=== PATIENT | male | born 1940 | race Two or more races ===

== ENCOUNTER 2025-06-19 03:43 | Emergency (ER) | payer OTHER ==
[~2025-06-19] VITALS: Ht 190.5 cm; Wt 117.9 kg
[2025-06-19] MEDS ORDERED: MORPHINE SULFATE INJ 4 MG/ML DISP.SYRIN ONE (04:30)
[2025-06-19] MEDS: MORPHINE SULFATE INJ 2 MG/ML DISP.SYRIN IV ONE (04:32)
[2025-06-19 04:35] LABS: PLATELET COUNT (AUTO) 159 K/uL (150-450); RED BLOOD CELL COUNT(AUTO) 4.18 MIL/uL (4.5-6.0); RED CELL DISTRIBUTION WIDTH 14.1 % (11.5-15.0); WHITE BLOOD COUNT (AUTO) 7.9 K/uL (4.3-11.0)
[2025-06-19 04:42] LABS: CALCIUM, SERUM 9.1 mg/dL (8.5-10.1); CREATININE 1.3 mg/dL (0.6-1.3); SODIUM SERUM 135.0 mmol/L (136-145); UREA NITROGEN, BLOOD 17.0 mg/dL (7-18)
[2025-06-19 04:44] LABS: ERYTHROCYTE SEDIMENTATION RATE 34 MM/HR (0-20)
[2025-06-19 07:21] VITALS: TEMP 98.7
[2025-06-19 08:05] VITALS: BP 131/66; O2SAT 98
== END 2025-06-19 07:55 | disposition short-term general hospital (02) ==
LOC: ER 03:48
DX: M19.90 Unspecified osteoarthritis, unspecified site (principal); M25.552 Pain in left hip; M25.551 Pain in right hip; Z85.46 Personal history of malignant neoplasm of prostate; Z88.0 Allergy status to penicillin
CPT/HCPCS: 99285; 96374; 72192; 85025; 80048; 85652; 84550; 36415; 86140; J2270